=== PATIENT | female | born 1950 | race Caucasian/White ===

== ENCOUNTER 2023-03-25 09:14 | Emergency (ER) | payer OTHER ==
[~2023-03-25] VITALS: Ht 162.6 cm; Wt 65.8 kg
[2023-03-25 09:18] VITALS: BP_SYST 138; PULSE 76; RESP 16; TEMP 97.9; O2SAT 97
[2023-03-25 09:55] LABS: HEMOGLOBIN 12.2 g/dL (12.0-16.0); MEAN CORPUSCULAR HGB CONC 33 % (32-36)
[2023-03-25 10:07] LABS: HEMATOCRIT 37.3 % (36-48); MEAN CORPUSCULAR HEMOGLOBIN 29 pg (27-31); MEAN CORPUSCULAR VOLUME 88 fL (79.0-98.0); RED BLOOD CELL COUNT(AUTO) 4.24 MIL/uL (4.2-6.2); RED CELL DISTRIBUTION WIDTH 15.8 % (9.0-15.0); WHITE BLOOD COUNT (AUTO) 5.8 K/uL (4.8-10.8)
[2023-03-25 10:08] LABS: CALCIUM 8.9 mg/dL (8.4-11.0); CREATININE 0.8 mg/dL (0.55-1.30); POTASSIUM 4.9 mmol/L (3.5-5.1)
[2023-03-25 10:11] LABS: PLATELET COUNT (AUTO) 1128 K/uL (130-430)
[2023-03-25 10:13] LABS: ALBUMIN 3.7 g/dL (3.4-4.8); TOTAL BILIRUBIN 1.6 mg/dL (0.0-1.0); TOTAL PROTEIN, SERUM 6.5 g/dL (6.4-8.3)
[2023-03-25 10:19] LABS: ATYPICAL LYMPHOCYTES % 7 % (0-0); BAND % (MANUAL) 2 % (0-6); BASOPHILS % (MANUAL) 0 % (0-2); EOSINOPHILS % (MANUAL) 2 % (0-7); LYMPHOCYTES % (MANUAL) 20 % (20-46); MONOCYTES % (MANUAL) 15 % (0-11)
[2023-03-25 10:20] LABS: OVALOCYTES FEW; PLATELET ESTIMATE INCREASED (ADEQUATE); STOMATOCYTES FEW; TARGET CELLS RARE
[2023-03-25 10:56] VITALS: BP_SYST 128; PULSE 76; RESP 16; TEMP 97.4; O2SAT 95
== END 2023-03-25 10:55 | disposition home or self-care (01) ==
LOC: SED 09:14
DX: D75.839 Thrombocytosis, unspecified (principal); R79.9 Abnormal finding of blood chemistry, unspecified; Z79.899 Other long term (current) drug therapy
CPT/HCPCS: 36415; 80053; 85007; 85027; 99283